=== PATIENT | male | born 1960 | race Two or more races ===

== ENCOUNTER 2024-02-15 06:04 | Day surgery (SDC) | payer BC, SELFPAY ==
[2024-02-07 06:53] VITALS: BMI 31.1
[2024-02-15] VITALS (13 sets, daily range): BP systolic 129–152; BP diastolic 69–98; BMI 31.1
[2024-02-15] MEDS: CYSVIEW KIT 100 MG INTRAVES (06:53)
[2024-02-15] MEDS: NORMOSOL-R 1000 IV (07:03)
[2024-02-15] MEDS: Pyridium 200 MG PO (09:02)
[2024-02-15] MEDS: SYRINGE NON-PUMP 50 MG IRRIG ×2 (09:08→09:10)
[2024-02-15] MEDS: SYRINGE NON-PUMP 50 ML IRRIG ×2 (09:08→09:10)
[2024-02-15] MEDS: TYLENOL 650 MG PO (11:20)
== END 2024-02-15 11:40 | disposition home or self-care (01) ==
LOC: SDS 06:04
PROVIDERS: ATTENDING PHYSICIAN Specialist; FAMILY PHYSICIAN Family Medicine
DX: C67.4 Malignant neoplasm of posterior wall of bladder (principal); R31.0 Gross hematuria
CPT/HCPCS: 52235; 88307; 36415; 88341; 88342; 93005; A9589

== ENCOUNTER 2024-06-22 06:23 | Day surgery (SDC) | payer BC, SELFPAY ==
[2024-06-18 08:16] VITALS: BMI 30.1
[2024-06-18 08:40] LABS: Hematocrit 39.9 % (39.0-52.0); Hemoglobin 13.7 g/dL (13.0-18.0); Mean Corp Hgb Conc. 34.3 g/dL (33.0-37.0); Mean Corpuscular Volume 84.5 fL (80.0-94.0); Mean Platelet Volume 11.2 fL (7.4-10.4); Platelet Count 147 10^3/uL (130-400); Red Blood Cell Count 4.72 10^6/uL (4.70-6.10); Red Cell Dist. Width 12.9 % (11.5-14.5); White Blood Cell Count 3.8 10^3/uL (4.8-10.8)
[2024-06-18 09:08] LABS: Blood Urea Nitrogen 17 mg/dl (9-20); Calcium 9.1 mg/dl (8.4-10.2); Carbon Dioxide 25 mmol/L (22-30); Chloride 108 mmol/L (98-107); Estimated Creatinine Clearance 98 ml/min; Glucose 124 mg/dl (70-99); Potassium 4.6 mmol/L (3.5-5.1); Sodium 142 mmol/L (135-145); eGFR > 60.00
[2024-06-22] VITALS (8 sets, daily range): BP systolic 105–155; BP diastolic 72–89; BMI 30.1
[2024-06-22] MEDS: CYSVIEW KIT 100 MG INTRAVES (10:30)
[2024-06-22] MEDS: Pyridium 200 MG PO (11:45)
== END 2024-06-22 12:53 | disposition home or self-care (01) ==
LOC: SDS 06:23
PROVIDERS: ATTENDING PHYSICIAN Specialist; FAMILY PHYSICIAN Family Medicine
DX: C67.9 Malignant neoplasm of bladder, unspecified (principal)
CPT/HCPCS: 52204; C9738; 88305; 88307; 36415; 80048; 85027; A9589

== ENCOUNTER 2024-10-26 06:09 | Day surgery (SDC) | payer BC, SELFPAY ==
[2024-10-19 08:46] LABS: Hematocrit 42.8 % (39.0-52.0); Hemoglobin 14.6 g/dL (13.0-18.0); Mean Corp Hgb Conc. 34.1 g/dL (33.0-37.0); Mean Corpuscular Hgb 29.6 pg (27.0-31.0); Mean Corpuscular Volume 86.6 fL (80.0-94.0); Mean Platelet Volume 11.9 fL (7.4-10.4); Platelet Count 146 10^3/uL (130-400); Red Blood Cell Count 4.94 10^6/uL (4.70-6.10); Red Cell Dist. Width 12.5 % (11.5-14.5); White Blood Cell Count 4.4 10^3/uL (4.8-10.8)
[2024-10-19 09:07] LABS: Blood Urea Nitrogen 19 mg/dl (9-20); Carbon Dioxide 25 mmol/L (22-30); Chloride 105 mmol/L (98-107); Glucose 140 mg/dl (70-99); Potassium 4.5 mmol/L (3.5-5.1); Sodium 139 mmol/L (135-145); eGFR > 60.00
[2024-10-19 14:05] VITALS: BMI 31.6
[2024-10-26] VITALS (7 sets, daily range): BP systolic 113–143; BP diastolic 71–85; BMI 31.6
[2024-10-26] MEDS: CYSVIEW KIT 100 MG INTRAVES (06:51)
[2024-10-26] MEDS: NORMOSOL-R/PLASMALYTE-A 1000 IV (07:00)
[2024-10-26] MEDS: Pyridium 200 MG PO (08:52)
== END 2024-10-26 09:21 | disposition home or self-care (01) ==
LOC: SDS 06:09
PROVIDERS: ATTENDING PHYSICIAN Specialist; FAMILY PHYSICIAN Family Medicine
DX: N30.20 Other chronic cystitis without hematuria (principal); D30.3 Benign neoplasm of bladder; C67.9 Malignant neoplasm of bladder, unspecified
CPT/HCPCS: 52204; 88305; 36415; 80048; 85027; 93005; A9589